=== PATIENT | male | born 1990 | race Caucasian/White ===

== ENCOUNTER 2020-02-06 09:31 | Emergency (ER) | payer MEDICAID, SELFPAY ==
[2020-02-06 09:38] VITALS: BP 136/74; PULSE 102; RESP 16; TEMP 36.9; O2SAT 94; BMI 29.2
[2020-02-06 09:44] VITALS: BP 136/74; PULSE 102; RESP 16; TEMP 36.9; O2SAT 94; BMI 29.2
--- NOTE | 2020-02-06 10:18 | HMH.EDUTC ---
[facility] [place] Clinical Impression: Bronchitis Sinusitis Qualifiers: Sinusitis location: unspecified location Chronicity: acute Recurrence: non-recurrent Qualified Code(s): J01.90 - Acute sinusitis, unspecified Disposition: Home, Self-Care Condition on Discharge: Good Instructions: Sinusitis, DI for Sinusitis Additional Instructions: Drink plenty of fluids. Take tylenol or ibuprofen for pain or fever. Take the medications as directed. Follow up with your regular doctor. GO TO THE ER FOR ANY WORSENING SYMPTOMS FOLLOW THE DIRECTIONS ON THE COVID-19 HAND OUT THAT WE GAVE YOU REGARDING SELF-ISOLATION UNTIL YOU KNOW YOUR COVID-19 RESULTS Prescriptions: Brompheniramine/Pseudoephed/Dm [Bromfed Dm Cough Syrup] 5 ml PO Q6HP PRN #240 syrup PRN Reason: Cough Transmission Status: Received by [facility] predniSONE [Deltasone 10mg tablet] 10 mg PO BID 4 Days #8 tab Transmission Status: Sent to [facility] Azithromycin [Z-Shukri 250mg Tab*] 250 mg PO UD DOSE PK #6 tab Transmission Status: [facility] Referrals: PCP,No [Primary Care Provider] - Time of Disposition: 10:30 Medical Decision Making - Medical Records Medical records reviewed: No: I reviewed the patient's medical records. - Tony Inquiry Pt receiving controlled substance: No Vital Signs: 02/06/20 09:38 02/06/20 09:44 02/06/20 10:43 Temperature 98.4 F 98.4 F 98.4 F Temperature Source Oral Oral Oral Pulse Rate 102 H Pulse Rate [Right Radial] 102 H 102 H Respiratory Rate 16 16 16 Blood Pressure 136/74 Blood Pressure [Right Arm] 136/74 136/74 Blood Pressure Mean [Right Arm] 94 94 Blood Pressure Source Automatic Cuff Blood Pressure Source [Right Arm] Automatic Cuff Blood Pressure Position Sitting Blood Pressure Position [Right Arm] Sitting 02 Sat by Pulse Oximetry 94 L 94 L Oxygen Delivery Method Room Air Room Air Room Air [facility] [place] - General Stated complaint: tightness in chest cough ear pain peters Time Seen by Provider: 02/06/20 10:19 Mode of Arrival: Ambulatory Source of Information: Patient Limitations: No Limitations Description of Symptoms (Recalled from Triage Doc. by RN): pt presents to ed with c/o cough, congestion, sore throat, runny nose and overall not feeling well 5 days. HEENT Symptoms (Recalled from RN notes): Yes Resp Symptoms (Recalled from RN notes): No Skin Symptoms (Recalled from RN notes): No MS Symptoms (Recalled from RN notes): No Functional Status (Recalled from RN notes): WNL - History of Present Illness Provider Complaint: He c/o sinus congestion and dry cough for the past 3 days. - Related Data Previous Rx's Medication Instructions Recorded Hydrocod/Acet 5/325 mg [Higbee 1 tab PO Q6HP PRN #10 tab 08/23/17 5/325mg tablet] Ibuprofen [Ibuprofen 800mg Tab] 800 mg PO Q8HP PRN #15 tab 08/23/17 Minocycline HCl [Minocycline HCl 100 mg PO BID #20 tab 02/10/19 100mg Tab*] Mupirocin [Bactroban 2% Ointment 1 applicatio TP BID #1 tube 02/10/19 22gm tube] cephALEXin [Keflex 500mg Cap] 500 mg PO TID #30 cap 02/10/19 predniSONE [Prednisone 20mg 20 mg PO BID #10 tab 08/14/19 Tab] cefdinir 300 mg capsule 300 mg PO BID 10 Days #20 cap 08/20/19 Azithromycin [Z-Shukri 250mg Tab*] 250 mg PO UD DOSE PK #6 tab 02/06/20 Brompheniramine/Pseudoephed/Dm 5 ml PO Q6HP PRN #240 syrup 02/06/20 [Bromfed Dm Cough Syrup] predniSONE [Deltasone 10mg tablet] 10 mg PO BID 4 Days #8 tab 02/06/20 Allergies Allergy/AdvReac Type Severity Reaction Status Date / Time Penicillin Allergy Intermediate I-RASH Uncoded 04/26/17 14:59 - Worker's Comp Is this a Worker's Comp case?: No [facility] History - Hepatitis A Screen Drug use history?: No High risk sexual behaviors?: No History of sexually transmitted infection?: No Currently employed?: No Childcare worker?: No Do you have indoor plumbing?: Yes Do you have electricity?: Yes A
[2020-02-06 10:43] VITALS: BP 136/74; PULSE 102; RESP 16; TEMP 36.9; O2SAT 94
== END 2020-02-06 10:44 | disposition home or self-care (01) ==
LOC: ER 09:39 → UTC 09:40
PROVIDERS: Emergency Provider Nurse Practitioner Family
DX: J20.9 Acute bronchitis, unspecified (principal); J01.90 Acute sinusitis, unspecified; Z88.0 Allergy status to penicillin; F17.210 Nicotine dependence, cigarettes, uncomplicated
CPT/HCPCS: 99201; U0003

== ENCOUNTER 2020-08-11 16:23 | Emergency (ER) | payer OTHER, SELFPAY ==
[2020-08-11 17:07] VITALS: BP 153/96; PULSE 88; RESP 18; TEMP 36.4; O2SAT 100; BMI 33.5
--- NOTE | 2020-08-11 17:16 | HMH.EDUTC ---
[facility] [place] Clinical Impression: Bronchitis, Exposure to COVID-19 virus Sinusitis Qualifiers: Sinusitis location: unspecified location Chronicity: acute Recurrence: non-recurrent Qualified Code(s): J01.90 - Acute sinusitis, unspecified Disposition: Home, Self-Care Condition on Discharge: Good Instructions: Sinusitis, DI for Sinusitis Additional Instructions: Drink plenty of fluids. Take tylenol for pain or fever. Return if you begin to have difficulty breathing. Follow up with your regular doctor. GO TO THE ER FOR ANY WORSENING SYMPTOMS Prescriptions: Brompheniramine/Pseudoephed/Dm [Bromfed Dm Cough Syrup] 5 ml PO Q6HP PRN #240 syrup PRN Reason: Cough Transmission Status: Received by [facility] predniSONE [Prednisone 20mg Tab] 20 mg PO BID 4 Days #8 tab Transmission Status: Received by [facility] Azithromycin [Z-Shukri 250mg Tab*] 250 mg PO UD DOSE PK #6 tab Transmission Status: Received by [facility] Referrals: PCP,No [Primary Care Provider] - Forms: Work/School Release Time of Disposition: 17:19 Medical Decision Making - Medical Records Medical records reviewed: No: I reviewed the patient's medical records. - Tony Inquiry Pt receiving controlled substance: No Vital Signs: 08/11/20 17:07 08/11/20 17:31 Temperature 97.6 F 98 F Temperature Source Tympanic Pulse Rate 83 Pulse Rate [Right] 88 Respiratory Rate 18 16 Blood Pressure 149/90 H Blood Pressure [Right Arm] 153/96 H Blood Pressure Mean [Right Arm] 115 02 Sat by Pulse Oximetry 100 Oxygen Delivery Method Room Air [facility] [place] - General Stated complaint: Covid test Time Seen by Provider: 08/11/20 17:17 Mode of Arrival: Ambulatory Source of Information: Patient Limitations: No Limitations Description of Symptoms (Recalled from Triage Doc. by RN): pt was exposed to covid last . pt states they started having symptoms tuesday. 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 HEENT Symptoms (Recalled from RN notes): Yes (nasal congestion) Resp Symptoms (Recalled from RN notes): No Skin Symptoms (Recalled from RN notes): No MS Symptoms (Recalled from RN notes): No Functional Status (Recalled from RN notes): na - History of Present Illness Provider Complaint: He states that she was exposed to covid-19 about 6 days ago. He has been having body aches, cough, sinus draingage and sore throat for the past 2 days. - Related Data Previous Rx's Medication Instructions Recorded Azithromycin [Z-Shukri 250mg Tab*] 250 mg PO UD DOSE PK #6 tab 08/11/20 Brompheniramine/Pseudoephed/Dm 5 ml PO Q6HP PRN #240 syrup 08/11/20 [Bromfed Dm Cough Syrup] predniSONE [Prednisone 20mg 20 mg PO BID 4 Days #8 tab 08/11/20 Tab] Allergies Allergy/AdvReac Type Severity Reaction Status Date / Time Penicillin Allergy Intermediate I-RASH Uncoded 05/22/20 11:35 - Worker's Comp Is this a Worker's Comp case?: No [facility] History - Hepatitis A Screen Drug use history?: No High risk sexual behaviors?: No History of sexually transmitted infection?: No Currently employed?: No Childcare worker?: No Do you have indoor plumbing?: Yes Do you have electricity?: Yes Attestation statement:: This patient has been screened for Hepatitis A risk factors. I have reviewed the patient's past medical history: Yes Medical History: Denies:: Diabetes Mellitus Type 1 Amputation: No Fractures: No - Social History Smoking Status: Current every day smoker Tobacco Type: cigarettes # Packs/Day (cigarettes): 1 Alcohol Intake: never Alcohol Intake Frequency:: holidays/special occasions only Occupational Status: other ROS Obtained: Yes All systems reviewed & no additional complaints - Constitutional Constitutional: Reports system reviewed and no additional complaints, except as docu - Eyes Eyes: Reports system reviewed and no additional complaints, except as docu - ENT Ears, Nose, Mo
[2020-08-11 17:31] VITALS: BP 149/90; PULSE 83; RESP 16; TEMP 36.6
== END 2020-08-11 17:42 | disposition home or self-care (01) ==
PROVIDERS: Emergency Provider Nurse Practitioner Family
DX: Z20.822 Contact with and (suspected) exposure to COVID-19 (principal); J20.9 Acute bronchitis, unspecified; J01.90 Acute sinusitis, unspecified
CPT/HCPCS: 99202; G0463; U0003

== ENCOUNTER 2020-09-12 15:08 | Emergency (ER) | payer OTHER, SELFPAY ==
[2020-09-12 15:30] VITALS: BP 123/76; PULSE 90; RESP 17; TEMP 37.1; O2SAT 98; BMI 33.3
--- NOTE | 2020-09-12 16:16 | HMH.EDUTC ---
[facility] [place] Disposition Clinical Impression: Pneumonitis Disposition: Home, Self-Care Condition on Discharge: Good Instructions: DI for Shortness of Breath Prescriptions: Doxycycline Hyclate [Doxycycline Hyclate 100mg Tablet] 100 mg PO Q12 10 Days #20 tab Transmission Status: Pending to [facility] predniSONE [Prednisone 20mg Tab] 20 mg PO BID 5 Days #10 tab Transmission Status: Pending to [facility] Albuterol Sulfate [Proair Hfa] 8.5 gm IH Q4HP PRN 10 Days #1 [email or web address] PRN Reason: Shortness Of Breath Transmission Status: Pending to [facility] Referrals: Provider,Referral, MD [Primary Care Provider] - Forms: Work/School Release Time of Disposition: 16:25 Medical Decision Making - Medical Records Medical records reviewed: Yes: I reviewed the patient's medical records. - Tony Inquiry Pt receiving controlled substance: No Vital Signs: 09/12/20 15:30 Temperature 98.7 F Temperature Source Oral Pulse Rate [Right Brachial] 90 Respiratory Rate 17 Blood Pressure [Right Arm] 123/76 Blood Pressure Mean [Right Arm] 91 Blood Pressure Source [Right Arm] Automatic Cuff Blood Pressure Position [Right Arm] Sitting 02 Sat by Pulse Oximetry 98 Oxygen Delivery Method Room Air [facility] [place] HPI - General Stated complaint: congestion Time Seen by Provider: 09/12/20 16:16 Mode of Arrival: Ambulatory Source of Information: Patient Limitations: No Limitations Description of Symptoms (Recalled from Triage Doc. by RN): PATIENT C/O DIFFICULTY BREATHING IN AM AND CHEST CONGESTION. STATES HE WAS TREATED FOR BRONCHITIS 3 WEEKS AGO BUT HAS NOT GOTTEN BETTER HEENT Symptoms (Recalled from RN notes): No Resp Symptoms (Recalled from RN notes): Yes Skin Symptoms (Recalled from RN notes): No MS Symptoms (Recalled from RN notes): No Functional Status (Recalled from RN notes): WNL - History of Present Illness Provider Complaint: Patient has had cough, congestion and intermittent SOA X 3 weeks. No fever. He has tested negative for COVID19 3 times. He does smoke but has cut back. No history of asthma or COPD. 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 Onset (ago): week(s) (3) Location: chest Relieving factors: none Exacerbating factors: none Associated symptoms: cough, shortness of breath Treatments prior to arrival: other (Zpack, cough meds) - Related Data Previous Rx's Medication Instructions Recorded Albuterol Sulfate [Proair Hfa] 8.5 gm IH Q4HP PRN 10 Days #1 09/12/20 [email or web address] Doxycycline Hyclate [Doxycycline 100 mg PO Q12 10 Days #20 tab 09/12/20 Hyclate 100mg Tablet] predniSONE [Prednisone 20mg 20 mg PO BID 5 Days #10 tab 09/12/20 Tab] Allergies Allergy/AdvReac Type Severity Reaction Status Date / Time Penicillins Allergy Verified 09/12/20 16:11 - Worker's Comp Is this a Worker's Comp case?: No [facility] History - Hepatitis A Screen Drug use history?: No High risk sexual behaviors?: No History of sexually transmitted infection?: No Currently employed?: No Childcare worker?: No Do you have indoor plumbing?: Yes Do you have electricity?: Yes Attestation statement:: This patient has been screened for Hepatitis A risk factors. I have reviewed the patient's past medical history: Yes Medical History: Denies:: Diabetes Mellitus Type 1 Laterality Cases: Bilateral: Myringotomy (Ear Tubes) Amputation: No Fractures: No - Social History Smoking Status: Current every day smoker Tobacco Type: cigarettes # Packs/Day (cigarettes): 1 Alcohol Intake: never Alcohol Intake Frequency:: holidays/special occasions only Occupational Status: other ROS Obtained: Yes All systems reviewed & no additional complaints - Respiratory Respiratory: Reports shortness of breath, Reports chest congestion, Reports cough Physical Exam - General General appearance: alert, in no apparent distress - Head Head exam: normocephalic - Eye Eye exam: Present: PERRL - ENT ENT exam: Pres
[2020-09-12 16:30] VITALS: BP 123/76; PULSE 90; RESP 17; TEMP 37.1; O2SAT 98
== END 2020-09-12 16:33 | disposition home or self-care (01) ==
PROVIDERS: Emergency Provider Physician Assistant
DX: J18.9 Pneumonia, unspecified organism (principal); Z88.0 Allergy status to penicillin; F17.210 Nicotine dependence, cigarettes, uncomplicated
CPT/HCPCS: 99202; G0463

== ENCOUNTER 2020-09-15 15:30 | Emergency (ER) | payer OTHER, SELFPAY ==
[2020-09-15 16:15] VITALS: BP 124/80; PULSE 107; RESP 21; TEMP 37.1; O2SAT 95; BMI 33.3
--- NOTE | 2020-09-15 16:17 | XR_ITS ---
PROCEDURE: XR CHEST 2V CLINICAL HISTORY: COUGH COMPARISON: CR XR CHEST 2V from 08/13/2019 FINDINGS: The cardiomediastinal silhouette and pulmonary vascularity are within normal limits. Calcified granuloma in the right mid zone. The lungs are clear without infiltrates, suspicious nodules, or pleural effusions. No acute bony abnormalities. IMPRESSION: No acute findings. Dictated by: Nallely Nichols 09/15/2020 16:30 Nallely Nichols in OV 09/15/2020 16:30
--- NOTE | 2020-09-15 16:30 | HMH.EDUTC ---
[facility] [place] Clinical Impression: Bronchitis Disposition: Home, Self-Care Condition on Discharge: Good Instructions: Acute Bronchitis Additional Instructions: Start antibiotic today. stop doxycline Be sure to complete entire prescription even if feeling better Tylenol and ibuprofen as needed for pain or fever Humidifier/vaporizer/hot steamy shower Follow-up with primary care tomorrow. Follow-up immediately in the ER of the [facility] for new or worsening symptoms or no noticeable improvement over the next 48-72 hours. Stop smoking Inhaler every 4-6 hours as needed. Should help open airways improved cough, wheezing, shortness of breath self isolate until covid results are neg Prescriptions: Azithromycin [Zithromax 250mg tab] 250 mg PO DIRECTED #6 tab Transmission Status: Pending to [facility] Referrals: Provider,Referral, [Primary Care Provider] - Forms: Work/School Release Time of Disposition: 16:45 Medical Decision Making - Tony Inquiry Pt receiving controlled substance: No Vital Signs: 09/15/20 16:15 Temperature 98.8 F Temperature Source Oral Pulse Rate [Right Brachial] 107 H Respiratory Rate 21 Blood Pressure [Right Arm] 124/80 Blood Pressure Mean [Right Arm] 94 Blood Pressure Source [Right Arm] Automatic Cuff Blood Pressure Position [Right Arm] Sitting 02 Sat by Pulse Oximetry 95 Oxygen Delivery Method Room Air Orders (Tests/Meds): ORDERS Category Date Time Status Covid-19 Nasal PCR ([facility]) Routine Lab 09/15/20 16:15 Received [facility] [place]PI - General Chief complaint: [facility] Stated complaint: congestion in chest cough Time Seen by Provider: 09/15/20 16:30 Mode of Arrival: Ambulatory Source of Information: Patient Limitations: No Limitations Description of Symptoms (Recalled from Triage Doc. by RN): PATIENT WAS SEEN HERE LAST WEEK AND TREATED FOR BRONCHITIS; STATES HE FEELS WORSE TODAY HEENT Symptoms (Recalled from RN notes): No Resp Symptoms (Recalled from RN notes): Yes Skin Symptoms (Recalled from RN notes): No MS Symptoms (Recalled from RN notes): No Functional Status (Recalled from RN notes): WNL - History of Present Illness Provider Complaint: 29 yr old male presents for cough, chest congestion, no smell or taste and sore throat. pt was seen last week and placed on meds but does not feel any better. denies soa - Related Data Previous Rx's Medication Instructions Recorded Albuterol Sulfate [Proair Hfa] 8.5 gm IH Q4HP PRN 10 Days #1 09/12/20 [email or web address] Doxycycline Hyclate [Doxycycline 100 mg PO Q12 10 Days #20 tab 09/12/20 Hyclate 100mg Tablet] predniSONE [Prednisone 20mg 20 mg PO BID 5 Days #10 tab 09/12/20 Tab] Azithromycin [Zithromax 250mg 250 mg PO DIRECTED #6 tab 09/15/20 tab] Allergies Allergy/AdvReac Type Severity Reaction Status Date / Time Penicillins Allergy Verified 09/12/20 16:11 [facility] History - Hepatitis A Screen Attestation statement:: This patient has been screened for Hepatitis A risk factors. I have reviewed the patient's past medical history: Yes Medical History: Denies:: Diabetes Mellitus Type 1 Laterality Cases: Bilateral: Myringotomy (Ear Tubes) Amputation: No Fractures: No - Social History Smoking Status: Current every day smoker Tobacco Type: cigarettes # Packs/Day (cigarettes): 1 Alcohol Intake: never Alcohol Intake Frequency:: holidays/special occasions only Occupational Status: other ROS Obtained: Yes Systems reviewed as appropriate & no additional complaints - Constitutional Constitutional: Reports system reviewed and no additional complaints, except as docu, Denies chills, Denies fever(s) - Eyes Eyes: Reports system reviewed and no additional complaints, except as docu, Denies blurry vision - ENT Ears, Nose, Mouth, and Throat: Reports system reviewed and no additional complaints, except as docu, Reports nasal congestion, Reports nasal discharge, Denies sore
[2020-09-15 16:49] VITALS: BP 124/80; PULSE 107; RESP 21; TEMP 37.1; O2SAT 95
== END 2020-09-15 16:52 | disposition home or self-care (01) ==
PROVIDERS: Emergency Provider Nurse Practitioner Family
DX: J20.9 Acute bronchitis, unspecified (principal); Z20.822 Contact with and (suspected) exposure to COVID-19; F17.210 Nicotine dependence, cigarettes, uncomplicated
CPT/HCPCS: 71046; 99202; G0463; U0003

== ENCOUNTER → 2021-02-26 18:52 | Outpatient (CLI) | payer SELFPAY | PROVIDERS: Visit Provider Nurse Practitioner Family | DX: Z20.822 Contact with and (suspected) exposure to COVID-19 (principal) | CPT/HCPCS: C9803; U0003; U0005 ==

== ENCOUNTER 2022-10-21 15:31 | Emergency (ER) | payer SELFPAY ==
[2022-10-21 15:40] VITALS: BP 115/70; PULSE 107; RESP 24; TEMP 36.8; O2SAT 96; BMI 26.2
--- NOTE | 2022-10-21 15:46 | EXP.UTC ---
Discharge Plan Disposition Patient Disposition: Home, Self-Care Condition: Good Prescriptions Prescriptions: New benzonatate 100 mg capsule 100 mg PO TID PRN (Reason: cough) Qty: 30 0RF albuterol sulfate [Proventil HFA] 90 mcg/actuation HFA aerosol inhaler 1 inh inhalation Q4-6H PRN (Reason: shortness of breath or wheezing) Qty: 8.5 0RF guaifenesin 1,200 mg tablet extended release 12hr 1,200 mg PO BID Qty: 20 0RF azithromycin [Zithromax Z-Shukri] 250 mg tablet See Rx Instructions .ROUTE .COMPLEX 5 Days Qty: 6 0RF Rx Instructions: For 250 mg dose pack: take 500 mg today (day 1), then 250 mg for 4 days (days 2-5) prednisone [prednisone] 20 mg tablet 20 mg PO BID 5 Days Qty: 10 0RF Referrals Follow up/Referrals: Provider,Referral, MD [Primary Care Provider] - See instructions Activity Restrictions/Add. Instructions Additional Instructions/Restrictions: Start antibiotic today. Be sure to complete entire prescription even if feeling better Monitor temp. Tylenol every 4 hours as needed and / or ibuprofen every 6 hours as needed ( As long as your primary care physician has told you that it ok to take both. For fever/aches/pains ER if no less than 101 despite Tylenol or Motrin Humidifier/vaporizer or hot steamy shower Inhaler every 4-6 hours as needed like we discussed. If unsure how to use it, ask pharmacist to demonstrate how. Should help open airways and improve cough, wheezing, and shortness of breath Mucinex during the day for your cough and cough suppressant only at night. Be sure to drink lots of water. Tessalon Perles will not cause drowsiness but use at bedtime to help stop cough so that you may get some rest. *Start steroid today. Helps with inflammation therefore, cough and wheezing. Follow directions on the package. Reviewed side effects. Patient reports taking them before. Follow up IMMEDIATELY for new or worsening of symptoms OR no noticeable improvement over the next 48-72 hours. 911 immediately for any life threatening symptoms such as chest pain or difficulty breathing Clinical Impressions Clinical Impression: Sinusitis, Bronchitis Instructions Patient Instructions: DI for Sinusitis, Sinusitis, Acute Bronchitis Discharge ED Provider: Leslie Rhoades [facility] HPI General Stated complaint: congestion, cough, runny nose Mode of Arrival: Ambulatory Source of Information: Patient Limitations: No Limitations Time Seen by Provider: 10/21/22 15:46 Description of Symptoms (Recalled from Triage Doc. by RN): PATIENT C/O CHEST CONGESTION, SORE CHEST, AND PRODUCTIVE COUGH THAT STARTED LAST TUESDAY HEENT Symptoms (Recalled from RN notes): No Resp Symptoms (Recalled from RN notes): Yes Skin Symptoms (Recalled from RN notes): No MS Symptoms (Recalled from RN notes): No Functional Status (Recalled from RN notes): WNL History of Present Illness Provider Complaint: Patient states that he started feeling bad on Tuesday States that he has been having head congestion, drainage in the back of his throat, sinus pain and pressure, cough and chest congestion States that at times he will cough up some greenish colored mucous States that today he was still having symptoms so he came in to get something to help Related Data Previous Rx's Medication Instructions Recorded albuterol sulfate 90 mcg/actuation 1 inh inhalation Q4-6H PRN 10/21/22 aerosol inhaler (Proventil HFA) shortness of breath or wheezing #8.5 grams azithromycin 250 mg tablet See Rx Instructions PO .COMPLEX 5 10/21/22 (Zithromax Z-Shukri) days #6 tabs benzonatate 100 mg capsule 100 mg PO TID PRN cough #30 caps 10/21/22 guaifenesin 1,200 mg tablet, 1,200 mg PO BID #20 tabs 10/21/22 extended release 12 hr prednisone 20 mg tablet 20 mg PO BID 5 days #10 tabs 10/21/22 Allergies Allergy/AdvReac Type Severity Reaction Status Date / Time Penicillins Allergy Verified 09/12/20 16:11 Worker's C
[2022-10-21 16:03] VITALS: BP 115/70; PULSE 107; RESP 24; TEMP 36.8; O2SAT 96
== END 2022-10-21 16:05 | disposition home or self-care (01) ==
PROVIDERS: Emergency Provider Nurse Practitioner
DX: J01.90 Acute sinusitis, unspecified (principal); J20.9 Acute bronchitis, unspecified; F17.210 Nicotine dependence, cigarettes, uncomplicated
CPT/HCPCS: 99212; 99214; G0463

== ENCOUNTER 2023-01-12 14:29 | Emergency (ER) | payer SELFPAY ==
[2023-01-12 15:10] VITALS: BP 0/0; PULSE 0; RESP 0; TEMP -17.7; TEMP 0
== END 2023-01-12 15:13 | disposition left against medical advice (07) ==
LOC: UTC 14:31
PROVIDERS: Emergency Provider Nurse Practitioner
DX: Z53.21 Procedure and treatment not carried out due to patient leaving prior to being seen by health care provider (principal)

== ENCOUNTER 2023-02-23 16:59 | Emergency (ER) | payer SELFPAY ==
[2023-02-23 16:59] VITALS: BP 141/70; PULSE 106; RESP 18; TEMP 36.8; O2SAT 98; BMI 21.2
--- NOTE | 2023-02-23 17:17 | EXP.UTC ---
Discharge Plan Disposition Patient Disposition: Home, Self-Care Condition: Good Prescriptions Prescriptions: New doxycycline hyclate 100 mg capsule 100 mg PO BID Qty: 20 0RF prednisone [prednisone] 20 mg tablet 20 mg PO BID 5 Days Qty: 10 0RF benzonatate 100 mg capsule 100 mg PO TID PRN (Reason: cough) Qty: 30 0RF guaifenesin [Mucinex] 600 mg tablet extended release 12hr 1,200 mg PO BID PRN (Reason: cough) Qty: 20 0RF Referrals Follow up/Referrals: Provider,Referral, MD [Primary Care Provider] - See instructions Activity Restrictions/Add. Instructions Additional Instructions/Restrictions: Start antibiotic today. Be sure to complete entire prescription even if feeling better Monitor temp. Tylenol every 4 hours as needed and / or ibuprofen every 6 hours as needed ( As long as your primary care physician has told you that it ok to take both. For fever/aches/pains ER if no less than 101 despite Tylenol or Motrin Humidifier/vaporizer or hot steamy shower Mucinex during the day for your cough and cough suppressant only at night. Be sure to drink lots of water. *Tessalon Perles will not cause drowsiness but use at bedtime to help stop cough so that you may get some rest. *Start steroid today. Helps with inflammation therefore, cough and wheezing. Follow directions on the package. Reviewed side effects. Patient reports taking them before. Follow up IMMEDIATELY for new or worsening of symptoms OR no noticeable improvement over the next 48-72 hours. 911 immediately for any life threatening symptoms such as chest pain or difficulty breathing Clinical Impressions Clinical Impression: Bronchitis Sinusitis Qualifiers: Sinusitis location: unspecified location Chronicity: unspecified Qualified Code(s): J32.9 - Chronic sinusitis, unspecified Stand Alone Forms Stand Alone Forms: Work/School Release Instructions Patient Instructions: DI for Sinusitis, Sinusitis, Acute Bronchitis Discharge ED Provider: Leslie Rhoades [facility] General Stated complaint: congestion, no smell/taste, body aches, weakness Mode of Arrival: Ambulatory Source of Information: Patient Limitations: No Limitations Time Seen by Provider: 02/23/23 17:18 Description of Symptoms (Recalled from Triage Doc. by RN): chest congestion, nasal congestion, fatigue, muscle aches, and lost of taste and smell HEENT Symptoms (Recalled from RN notes): Yes Resp Symptoms (Recalled from RN notes): No Skin Symptoms (Recalled from RN notes): No MS Symptoms (Recalled from RN notes): No Functional Status (Recalled from RN notes): na History of Present Illness Provider Complaint: Patient states he has been having sinus pain and pressure for last week and half and he has been taking OTC medication and it helped some states that for the last couple of days it is moving into his chest and he is coughing up mucous at times, States that now he is feeling achy all over, nasal congestion, chest congestion and loss of taste and smell so he came in to get checked Related Data Previous Rx's Medication Instructions Recorded benzonatate 100 mg capsule 100 mg PO TID PRN cough #30 caps 02/23/23 doxycycline hyclate 100 mg capsule 100 mg PO BID #20 caps 02/23/23 guaifenesin 600 mg tablet, 1,200 mg PO BID PRN cough #20 tabs 02/23/23 extended release 12 hr (Mucinex) prednisone 20 mg tablet 20 mg PO BID 5 days #10 tabs 02/23/23 Allergies Allergy/AdvReac Type Severity Reaction Status Date / Time Penicillins Allergy Verified 02/23/23 17:17 Worker's Comp Is this a Worker's Comp case?: No [facility] Disclaimer: The information contained in this section may have been updated after the patient was seen, as this information can be updated by other users. Social History Smoking Status: Current every day smoker tobacco type: cigarettes packs per day: 1 second hand exp
[2023-02-23 17:49] VITALS: BP 141/70; PULSE 106; RESP 18; TEMP 36.8; O2SAT 98
== END 2023-02-23 17:49 | disposition home or self-care (01) ==
PROVIDERS: Emergency Provider Nurse Practitioner
DX: J20.9 Acute bronchitis, unspecified (principal); J01.90 Acute sinusitis, unspecified; F17.210 Nicotine dependence, cigarettes, uncomplicated
CPT/HCPCS: 87635; 99212; 99214; G0463

== ENCOUNTER 2023-08-03 15:45 | Emergency (ER) | payer OTHER, SELFPAY ==
[2023-08-03 16:00] VITALS: BP 124/73; PULSE 80; RESP 18; TEMP 36.5; O2SAT 97; BMI 23.1
--- NOTE | 2023-08-03 16:21 | EXP.UTC ---
Discharge Plan Disposition Patient Disposition: Home, Self-Care Condition: Good Prescriptions Prescriptions: No Action buprenorphine-naloxone 8-2 mg film See Rx Instructions .ROUTE .COMPLEX Rx Instructions: see rx Referrals Follow up/Referrals: Provider,Referral, [Primary Care Provider] - See instructions Activity Restrictions/Add. Instructions Additional Instructions/Restrictions: Drink extra fluids with and between meals. If you have difficulty drinking, try very small amounts of water or suck on ice chips. ? Avoid fruit juices, as these do not replace minerals and can actually increase diarrhea. ? Children and adults can use sports drinks to replenish electrolytes. Younger children and infants should use products formulated for children, like oral rehydration solutions. ? Eat food in small amounts and let your stomach recover. ? Get lots of rest. You may feel tired or weak. ? No greasy or fried foods for the next 24-48 hours BRAT diet Bananas Rice Apples and Keo ? Make sure to drink plenty of liquids ? Return if needed ? Straight to ER if any life threatening symptoms ? Follow up with family doctor in the next 48-72 hours if no improvement or any worsening of symptoms Clinical Impressions Clinical Impression: Viral syndrome Stand Alone Forms Stand Alone Forms: Work/School Release Instructions Patient Instructions: Nausea and Vomiting-Adult, Diarrhea Discharge ED Provider: Leslie Rhoades [facility] [place] General Stated complaint: nauseated Mode of Arrival: Ambulatory Source of Information: Patient Limitations: No Limitations Time Seen by Provider: 08/03/23 16:21 Description of Symptoms (Recalled from Triage Doc. by RN): Pt's symptoms are vomiting, and diarrhea. HEENT Symptoms (Recalled from RN notes): Yes Resp Symptoms (Recalled from RN notes): No Skin Symptoms (Recalled from RN notes): No MS Symptoms (Recalled from RN notes): No Functional Status (Recalled from RN notes): n/a History of Present Illness Provider Complaint: Patient states that he was up most of the night with N/V/D and wasnt able to go to work this morning States he has continued to feel better today and not had anymore N/V/D and has Zofran at home but needed to get a Work note Related Data Home Medications Medication Instructions Recorded Confirmed buprenorphine 8 mg-naloxone 2 mg See Rx Instructions .Route .COMPLEX 08/03/23 08/03/23 sublingual film Allergies Allergy/AdvReac Type Severity Reaction Status Date / Time Penicillins Allergy Verified 08/03/23 16:06 Worker's Comp Is this a Worker's Comp case?: [facility] Dis[facility]: The information contained in this section may have been updated after the patient was seen, as this information can be updated by other users. Social History Smoking Status: Current every day smoker tobacco type: cigarettes packs per day: 1 second hand exposure: Yes alcohol intake: never current occupational status: other Travel in the last 8 weeks: None caffeine: No ROS Obtained: Yes All systems reviewed & no additional complaints except as documented and Yes Systems reviewed as appropriate & no additional complaints except as documented Constitutional Constitutional: Reports system reviewed and no additional complaints, except as documented and Reports as per HPI ENT Ears, Nose, Mouth, and Throat: Reports system reviewed and no additional complaints, except as documented and Reports as per HPI Cardiovascular Cardiovascular: Reports system reviewed and no additional complaints, except as documented and Reports as per HPI Respiratory Respiratory: Reports system reviewed and no additional complaints, except as documented and Reports as per HPI Gastrointestinal Gastrointestingal: Reports system reviewed and no additional complaints, except as documented, as per HPI, diarrhea, nausea and vomiting Physical Exam General General appearance: alert and in no apparent distress ENT ENT exam: Present mucous membranes moist Respiratory Respiratory exam: Present normal lung sounds bilaterally; Absent respiratory distress or wheezes Cardiovascular Cardiovascular exam: Present regular rate, normal rhythm and normal heart sounds Neurological Exam Neurological exam: Present alert, oriented X3 and normal gait Medical Decision Making Tony Inquiry Pt receiving controlled substance: No Tony was queried for this patient: No Vital Signs: 08/03/23 16:00 Temperature 97.7 F Temperature Source Oral Pulse Rate [Right Radial] 80 Respiratory Rate 18 Blood Pressure [Right Arm] 124/73 Blood Pressure Mean [Right Arm] 90 Blood Pressure Source [Right Arm] Automatic Cuff Blood Pressure Position [Right Arm] Sitting 02 Sat by Pulse Oximetry 97 Oxygen Delivery Method Room Air
[2023-08-03 16:44] VITALS: BP 124/73; PULSE 80; RESP 18; TEMP 36.5; O2SAT 97
== END 2023-08-03 16:44 | disposition home or self-care (01) ==
PROVIDERS: Emergency Provider Nurse Practitioner
DX: R11.2 Nausea with vomiting, unspecified (principal); R19.7 Diarrhea, unspecified; B34.9 Viral infection, unspecified; F17.210 Nicotine dependence, cigarettes, uncomplicated
CPT/HCPCS: 99211; 99212; 99213; G0463

== ENCOUNTER 2024-04-18 16:51 | Emergency (ER) | payer OTHER, SELFPAY ==
[2024-04-18 17:45] VITALS: BP 131/81; PULSE 70; RESP 19; TEMP 36.8; O2SAT 98; BMI 27.7
--- NOTE | 2024-04-18 18:02 | ED_ITS ---
Discharge Plan Disposition Patient Disposition: Home, Self-Care Condition: Good Prescriptions Prescriptions: New methylprednisolone [Medrol (Shukri)] 4 mg tablets,dose pack See Rx Instructions .Route .COMPLEX 6 Days Qty: 21 0RF Rx Instructions: taper pack; guaifenesin [Mucinex] 1,200 mg tablet extended release 12hr 1,200 mg PO Q12H PRN (Reason: congestion) Qty: 20 0RF azithromycin [Zithromax Z-Shukri] 250 mg tablet See Rx Instructions .ROUTE .COMPLEX 5 Days Qty: 6 0RF Rx Instructions: For 250 mg dose pack: take 500 mg today (day 1), then 250 mg for 4 days (days 2-5) No Action buprenorphine-naloxone 8-2 mg film 1 film sublingual DAILY Rx Instructions: see rx Referrals Follow up/Referrals: Provider,Referral, MD [Primary Care Provider] - See instructions Activity Restrictions/Add. Instructions Additional Instructions/Restrictions: * Start antibiotic today. Be sure to complete entire prescription even if feeling better * Monitor temp. Tylenol every 4 hours as needed and / or ibuprofen every 6 hours as needed ( As long as your primary care physician has told you that it ok to take both. For fever/aches/pains ER if no less than 101 despite Tylenol or Motrin * Humidifier/vaporizer or hot steamy shower * Mucinex for your cough Be sure to drink lots of water. *Start steroid today. Helps with inflammation therefore, cough and wheezing. Follow directions on the package. Reviewed side effects. Patient reports taking them before. Follow up IMMEDIATELY for new or worsening of symptoms OR no noticeable i mprovement over the next 48-72 hours. 911 immediately for any life threatening symptoms such as chest pain or difficulty breathing Clinical Impressions Clinical Impression: Sinusitis, Bronchitis Stand Alone Forms Stand Alone Forms: Work/School Release Instructions Patient Instructions: DI for Sinusitis, Acute Bronchitis Print Language Print Language: Bulgarian Discharge ED Provider: Leslie Rhoades [facility] [place] HPI General Stated complaint: congestion painful cough diahrrea nausea Mode of Arrival: Ambulatory Source of Information: Patient Limitations: No Limitations Time Seen by Provider: 04/18/24 18:02 Description of Symptoms (Recalled from Triage Doc. by RN): PATIENT C/O NASAL AND CHEST CONGESTION, COUGH, DIARRHEA, AND NO ENERGY X 6 DAYS HEENT Symptoms (Recalled from RN notes): Yes Resp Symptoms (Recalled from RN notes): Yes Skin Symptoms (Recalled from RN notes): No MS Symptoms (Recalled from RN notes): No Functional Status (Recalled from RN notes): WNL History of Present Illness Provider Complaint: Patient states that he has been having sinus congestion and pressure, chest congestion, nonproductive cough, diarrhea and not feeling well for about a week now States that the drainage in the back of his throat is irritating his throat and causing him to have diarrhea so today he had to miss work and came in to get checked Related Data Home Medications ?Medication ?Instructions ?Recorded ?Confirmed buprenorphine 8 mg-naloxone 2 mg 1 film sublingual DAILY 08/03/23 04/18/24 sublingual film Previous Rx's ?Medication ?Instructions ?Recorded azithromycin 250 mg tablet See Rx Instructions PO .COMPLEX 5 04/18/24 (Zithromax Z-Shukri) days #6 tabs guaifenesin 1,200 mg tablet, 1,200 mg PO Q12H PRN congestion 04/18/24 extended release 12 hr (Mucinex) #20 tabs methylprednisolone 4 mg tablets in See Rx Instructions .Route 04/18/24 a dose pack (Medrol (Shukri)) .COMPLEX 6 days #21 tabs Allergies Allergy/AdvReac Type Severity Reaction Status Date / Time Penicillins Allergy Verified 08/03/23 16:06 Worker's Comp Is this a Worker's Comp case?: No [facility] Disclaimer: The information contained in this section may have been updated after the patient was seen, as this information can be updated by other users. Surgical History (Updated 04/18/24 @ 17:52 by Latrice Rahman RN) Hx of tympanostomy tubes Social History Smoking Status: Current every day smoker tobacco type: cigarettes packs per day: 1 second hand exposure: Yes alcohol intake: never current occupational status: other Travel in the last 8 weeks: None caffeine: No ROS Obtained: Yes All systems reviewed & no additional complaints except as documented and Yes Systems reviewed as appropriate & no additional complaints except as documented Constitutional Constitutional: Reports system reviewed and no additional complaints, except as documented, Reports as per HPI and Reports headache(s) ENT Ears, Nose, Mouth, and Throat: Reports system reviewed and no additional complaints, except as documented, Reports as per HPI, Reports headache(s), Reports sinus pain and Reports sinus pressure Cardiovascular Cardiovascular: Reports system reviewed and no additional complaints, except as documented and Reports as per HPI Respiratory Respiratory: Reports system reviewed and no additional complaints, except as documented, Reports as per HPI, Reports chest congestion and Reports cough Neurologic Neurologic: Reports headache(s) Physical Exam General General appearance: alert and in no apparent distress ENT ENT exam: Present mucous membranes moist Expanded ENT Exam Nose exam: Present sinus tenderness Throat exam: Present other (PND noted with mild pharyngeal erythema) Respiratory Respiratory exam: Present normal lung sounds bilaterally; Absent respiratory distress or wheezes Cardiovascular Cardiovascular exam: Present regular rate, normal rhythm and normal heart sounds Abdominal Exam Abdominal exam: Present soft and normal bowel sounds; Absent distention or tenderness Neurological Exam Neurological exam: Present alert, oriented X3 and normal gait Medical Decision Making Medical Records Screening: Per USPSTF and CDC recommendations, given the prevalence of disease in our region, it is our hospital?s policy to screen for HIV and viral Hepatitis for all patients aged 18 and over and those with ongoing risk factors. Tony Inquiry Pt receiving controlled substance: No Tony was queried for this patient: No Vital Signs: 04/18/24 17:45 Temperature 98.3 F Temperature Source Oral Pulse Rate [Left Brachial] 70 Respiratory Rate 19 Blood Pressure [Left Arm] 131/81 Blood Pressure Mean [Left Arm] 97 Blood Pressure Source [Left Arm] Automatic Cuff Blood Pressure Position [Left Arm] Sitting 02 Sat by Pulse Oximetry 98 Oxygen Delivery Method Room Air
[2024-04-18 18:15] VITALS: BP 131/81; PULSE 70; RESP 19; TEMP 36.8; O2SAT 98
[2024-04-18 18:25] LABS: Coronavirus 19, PCR Not Detected (NotDetected); Influenza A, PCR Not Detected (NotDetected); Influenza B, PCR Not Detected (NotDetected)
== END 2024-04-18 18:18 | disposition home or self-care (01) ==
PROVIDERS: Emergency Provider Nurse Practitioner
DX: J40 Bronchitis, not specified as acute or chronic (principal); J32.9 Chronic sinusitis, unspecified; R09.81 Nasal congestion; R05.9 Cough, unspecified; R19.7 Diarrhea, unspecified; R53.83 Other fatigue; R51.9 Headache, unspecified
CPT/HCPCS: 87636; 99212; G0381

== ENCOUNTER 2024-07-24 18:06 | Emergency (ER) | payer SELFPAY ==
[2024-07-24 18:34] VITALS: BP 154/82; PULSE 100; RESP 18; TEMP 36.7; O2SAT 99; BMI 28.0
[2024-07-24 18:41] LABS: Coronavirus 19, PCR Not Detected (NotDetected); Influenza A, PCR Not Detected (NotDetected); Influenza B, PCR Not Detected (NotDetected)
--- NOTE | 2024-07-24 18:43 | ED_ITS ---
<Statement entered by Krista Gonzales DO - 07/24/24 23:38> I was consulted by the ANITA, and we discussed the complexity of the problems being addressed. I approved the treatment and management plan for this patient's care in the emergency department, thus performing a substantive portion of the medical decision making. Krista Gonzales DO Discharge Plan Disposition Patient Disposition: Home, Self-Care Condition: Good Prescriptions Prescriptions: New sgslebdwzyiryss-qosiyqene-NN [Bromfed DM] 2-30-10 mg/5 mL syrup 5 ml PO Q4H PRN (Reason: sinus symptoms) Qty: 118 0RF No Action methylprednisolone [Medrol (Shukri)] 4 mg tablets,dose pack See Rx Instructions .Route .COMPLEX 6 Days Qty: 21 0RF Rx Instructions: taper pack; guaifenesin [Mucinex] 1,200 mg tablet extended release 12hr 1,200 mg PO Q12H PRN (Reason: congestion) Qty: 20 0RF azithromycin [Zithromax Z-Shukri] 250 mg tablet See Rx Instructions .ROUTE .COMPLEX 5 Days Qty: 6 0RF Rx Instructions: For 250 mg dose pack: take 500 mg today (day 1), then 250 mg for 4 days (days 2-5) buprenorphine-naloxone 8-2 mg film 1 film sublingual DAILY Rx Instructions: see rx Referrals Follow up/Referrals: Provider,Referral, MD [Primary Care Provider] - See instructions Activity Restrictions/Add. Instructions Additional Instructions/Restrictions: I sent a prescription in for Bromfed to your pharmacy. I recommend taking Tylenol alternating every 4 hours with Motrin for symptom treatment. If you have continued new or worsening signs or symptoms follow-up with your PCP return to the ER as needed. Clinical Impressions Clinical Impression: Respiratory tract infection Stand Alone Forms Stand Alone Forms: Work/School Release Print Language Print Language: Armenian Discharge ED Provider: Krista Gonzales General Adult HPI General Chief complaint: Upper Respiratory Infection Stated complaint: jace, ear ache Time Seen by Provider: 07/24/24 18:43 Mode of Arrival: Ambulatory Source of Information: Patient Description of Symptoms (Recalled from ER Triage Doc. by RN): Patient reports congestion and right ear pain that started last night. History of Present Illness HPI narrative: Patient presents for evaluation of congestion ear pain. Patient states his symptoms began yesterday and have progressed today to be constant. He denies fever chest pain shortness of breath hemoptysis hematochezia melena nausea vomiting diarrhea. Patient does report he has a sore throat but no headache. Patient has no loss of hearing. Related Data Home Medications ?Medication ?Instructions ?Recorded ?Confirmed buprenorphine 8 mg-naloxone 2 mg 1 film sublingual DAILY 08/03/23 04/18/24 sublingual film Previous Rx's ?Medication ?Instructions ?Recorded azithromycin 250 mg tablet See Rx Instructions PO .COMPLEX 5 04/18/24 (Zithromax Z-Shukri) days #6 tabs guaifenesin 1,200 mg tablet, 1,200 mg PO Q12H PRN congestion 04/18/24 extended release 12 hr (Mucinex) #20 tabs methylprednisolone 4 mg tablets in See Rx Instructions .Route 04/18/24 a dose pack (Medrol (Shukri)) .COMPLEX 6 days #21 tabs hremoqdfkpvlsfm-fwmgsytymkxsvvh-KP 5 ml PO Q4H PRN sinus symptoms 07/24/24 2 mg-30 mg-10 mg/5 mL oral syrup #118 mL (Bromfed DM) Allergies Allergy/AdvReac Type Severity Reaction Status Date / Time Penicillins Allergy Verified 08/03/23 16:06 [facility] Disclaimer: The information contained in this section may have been updated after the patient was seen, as this information can be updated by other users. Surgical History (Updated 04/18/24 @ 17:52 by Latrice Rahman RN) Hx of tympanostomy tubes Social History Smoking Status: Current every day smoker tobacco type: cigarettes packs per day: 1 second hand exposure: Yes alcohol intake: never current occupational status: other Travel in the last 8 weeks: None caffeine: No Have you lived/traveled outside [place] in past 30 days?: No Contact w/someone who lives/traveled outside [place] past 30 days?: No Exposure to someone with infectious disease in past 14 days?: No Do you have a fever (greater than 100.4 F or 38 C)?: Yes Have you tested positive for COVID-19: No Exposed to someone with COVID-19 in past 14 days?: No Do you have a sore throat?: No Do you have a cough?: No Do you have any weakness?: No Do you have any diarrhea?: No Are you experiencing any unusual bleeding?: No Do you have any muscle aches/pain?: No Do you have any abdominal pain?: No Are you experiencing loss of taste or smell?: No Other Medical History Have you received the Flu Vaccine for this season: No Have you received the Pneumonia Vaccine: No ROS Obtained: Yes Systems reviewed as appropriate & no additional complaints except as documented Physical Exam General General appearance: alert and in no apparent distress Respiratory Respiratory exam: Present normal lung sounds bilaterally Cardiovascular Cardiovascular exam: Present regular rate Neurological Exam Neurological exam: Present alert and oriented X3 Medical Decision Making Medical Records Medical records reviewed: Yes I reviewed the patient's medical records. Screening: Per USPSTF and CDC recommendations, given the prevalence of disease in our region, it is our hospital?s policy to screen for HIV and viral Hepatitis for all patients aged 18 and over and those with ongoing risk factors. Tony Inquiry Pt receiving controlled substance: No Vital Signs: 07/24/24 18:34 Temperature 98.1 F Temperature Source Oral Pulse Rate [Radial] 100 H Respiratory Rate 18 Blood Pressure [Right Arm] 154/82 H Blood Pressure Mean [Right Arm] 106 Blood Pressure Source [Right Arm] Automatic Cuff Blood Pressure Position [Right Arm] Sitting 02 Sat by Pulse Oximetry 99 Oxygen Delivery Method Room Air Lab Data Lab results reviewed: Yes I reviewed the patient's lab results. Lab Results 07/24/24 18:25: SARS-CoV-2 (PCR) Not detected, Influenza A Untype (PCR) Not detected, Influenza Type B (PCR) Not detected Orders (Tests/Meds): ED MEDICATIONS Discontinued Medications Generic Name Dose Route Start Last Admin Trade Name Giorgio PRN Reason Stop Dose Admin Acetaminophen 1,000 mg 07/24/24 18:55 07/24/24 19:41 Acetaminophen 500mg Tab PO 07/24/24 18:56 1,000 mg ONCE ONE Administration Ibuprofen 800 mg 07/24/24 18:55 07/24/24 19:41 Ibuprofen 400 Mg Tablet PO 07/24/24 18:56 800 mg ONCE ONE Administration ORDERS Category Date Time Status HIV Combo Stat Lab 07/24/24 18:36 Ordered Hepatitis C Ab Qual. W/ RFX Stat Lab 07/24/24 18:36 Ordered Rapid PCR Covid and Flu A/B Stat Lab 07/24/24 18:25 Completed Strep Scrn Group A (Rapid) Stat Lab 07/24/24 18:55 Ordered Medical Decision Narrative: In summary patient is a 33-year-old male who presents to the emergency department for evaluation of upper respiratory infection. Patient is dynamically stable with a blood pressure 154/82 heart rate 118 times a minute satting at 99% on room air upon arrival, afebrile at 98.1. Physical exam is remarkable for normal bilateral tympanic membranes and external auditory canals, he has erythematous posterior pharynx without exudate, he has no postnasal drip, he has boggy nasal mucosa, breath sounds are clear and equal bilaterally to the bases without adventitious sounds no increased work of breathing or accessory muscle use.. Differential diagnosis includes upper or lower respiratory tract infection versus strep. Initial workup will be conducted with COVID flu and strep swabs. Initial interventions include Tylenol and ibuprofen. Initial workup reviewed by me shows his COVID and flu swabs are negative and his strep screen was not collected as patient refused throat swab. Upon reassessment I explained that should he continue to have symptoms and we have not ruled out strep to be aware of increasing high fever or worsening signs or symptoms. Patient verbalized understanding and agreement. Via patient directed decision making discharge she is comfortable going home without strep swab and following up should he have continued symptoms. Thus patient is appropriate for discharge with prescription for Bromfed and strict return precautions. Critical Care Critical Care Time Critical Care Time: No
--- NOTE | 2024-07-24 19:40 | PC.NURSE ---
Went in room to swab patients throat and patient refused throat swab. Notified patient of risks and benefits of this test. Also notified provider of refusal.
[2024-07-24] MEDS: IBUPROFEN 400 MG TABLET 800 MG PO (19:41)
[2024-07-24] MEDS: ACETAMINOPHEN 500MG TAB 1000 MG PO (19:41)
[2024-07-24 19:53] VITALS: BP 132/68; PULSE 74; RESP 14; TEMP 36.6; O2SAT 100
== END 2024-07-24 19:54 | disposition home or self-care (01) ==
PROVIDERS: Emergency Provider Emergency Medicine
DX: J98.8 Other specified respiratory disorders (principal); R09.81 Nasal congestion; H92.01 Otalgia, right ear; J02.9 Acute pharyngitis, unspecified; F17.210 Nicotine dependence, cigarettes, uncomplicated
CPT/HCPCS: 87636; 99283